=== PATIENT | male | born 1970 | race Caucasian/White ===

== ENCOUNTER 2017-01-25 21:24 | Emergency (ER) | payer OTHER ==
[~2017-01-25] VITALS: Ht 188 cm; Wt 130.0 kg
[~2017-01-25 21:24] MED LIST: 1-ME1LIQ PO; ALLO100T PO; OMPR20CCR PO; VENTAER INH; ZOLP10TA3 PO
[2017-01-25 21:28] VITALS: BP 157/94; PULSE 83; RESP 18; TEMP 98.2; O2SAT 95
[2017-01-25] MEDS ORDERED: ZOLP10TA3 PO (21:42)
[2017-01-25] MEDS ORDERED: LOSA50TA PO (21:42)
[2017-01-25] MEDS ORDERED: FINA1TAB16 PO (21:42)
[2017-01-25] MEDS ORDERED: OMEP20TA PO (21:42)
[2017-01-25 21:43] VITALS: BP 157/94; PULSE 83; RESP 18; TEMP 98.2; O2SAT 95
--- NOTE | 2017-01-25 21:52 | PD ---
HPI Chief Complaint: Injury Time Seen by Provider: 21:46 Travel History International Travel<30 days: Yes Contact w/Intl Traveler<30days: Yes Name of Country Traveled to: [place] Traveled to known affect area: No History of Present Illness HPI 46-year-old male presents to the emergency department by private transportation for complaint of right shoulder and clavicle pain after a fall earlier today. Patient states while playing tennis he was over reaching and allergies see overextended his right upper extremity he ended up falling, tucking and rolling , and injuring his right clavicle and shoulder. Patient states pain increases with attempted range of motion. Patient denies any deformity or swelling. Patient notes distally the right upper extremity demonstrates no numbness tingling or weakness. [employer] strength is normal. Patient is right-handed. Patient states he did not hit his head did not lose consciousness did not injure his neck or back or chest. Patient rates his pain 5/10 in intensity. No prior similar history. PFSH Past Medical History Narrative Medical Asthma dyslipidemia hypertension sleep apnea immunizations current; ear and sinus surgery right hip surgery; occasional alcohol use; nursing notes reviewed Asthma: Yes (MILD) Autoimmune Disease: No Cancer: No Cardiovascular Problems: No High Cholesterol: Yes Diabetes: No Diminished Hearing: No Endocrine: No Genitourinary: No Hepatitis: No Hiatal Hernia: No Hypertension: Yes Immune Disorder: No Musculoskeletal: No Neurologic: No Psychiatric: No Reproductive: No Respiratory: No Immunizations Current: Yes Sleep Apnea: Yes Thyroid Disease: No Past Surgical History Abdominal Surgery: No AICD: No Arteriovenous Shunt: No Cardiac Surgery: No Ear Surgery: Yes (TUBES IN RIGHT EAR) Endocrine Surgery: No Eye Surgery: No Genitourinary Surgery: No Gynecologic Surgery: No Insulin Pump: No Joint Replacement: Yes (hardware in the right hip) Oral Surgery: Yes (sinusotomy "surgery for sleep apnea") Pacemaker: No Thoracic Surgery: No Other Surgery: Yes (SINUS AND THROAT SX FOR SNORING) Social History Alcohol Use: Yes (COUPLE DRINKS 2-3 DAYS A WEEK.) Tobacco Use: No Substance Use: No Allergies-Medications (Allergen,Severity, Reaction): Coded Allergies: No Known Allergies (Verified , 01/25/17) Reported Meds & Prescriptions Reported Meds & Active Scripts Active Reported Zolpidem (Zolpidem Tartrate) 10 Mg Tab 10 Mg PO HS PRN Losartan (Losartan Potassium) 50 Mg Tab 50 Mg PO DAILY Finasteride (Finasteride (Alopecia)) 1 Mg Tab 1 Mg PO DAILY Omeprazole 20 Mg Tab 20 Mg PO DAILY Review of Systems Except as stated in HPI: all other systems reviewed are Neg General / Constitutional: No: Fever, Chills Eyes: No: Visual changes HENT: No: Headaches, Neck Pain Cardiovascular: No: Chest Pain or Discomfort Respiratory: No: Shortness of Breath Gastrointestinal: No: Abdominal Pain Genitourinary: No: Flank Pain Musculoskeletal: Positive: Pain (right shoulder clavicle) Skin: No Rash Neurologic: No: Weakness, Paresthesia Psychiatric: No: Anxiety Hematologic/Lymphatic: No: Lymph Node Enlargement Physical Exam Narrative GENERAL: Well-developed well-nourished female in acute distress no respiratory distress; GCS 15 SKIN: Warm and dry. HEAD: Normocephalic. No scalp soft tissue swelling abrasion laceration or tenderness. EYES: No scleral icterus. No injection or drainage. Pupils equal round reactive to light extraocular muscles intact. NECK: Supple, trachea midline. No JVD or lymphadenopathy. Nontender to direct palpation along the cervical spine. CARDIOVASCULAR: Regular rate and rhythm without murmurs, gallops, or rubs. RESPIRATORY: Breath sounds equal bilaterally. No accessory muscle use. GASTROINTESTINAL: Abdomen soft, non-tender, nondistended. MUSCULOSKELETAL: No cyanosis, or edema. Tenderness to palpation over the right shoulder and distal right clavicle without palpable deformity or crepitus. Distally right upper extremity is otherwise neurovascular tendon intact with 5 over 5 heart coordinator strength capillary refill is brisk and less than 2 seconds per digit and thumb apposition intact. Wrist extension intact. Thumb abduction and adduction intact. BACK: Nontender without obvious deformity. No CVA tenderness. Data Data Last Documented VS Vital Signs Date Time Temp Pulse Resp B/P Pulse Ox O2 Delivery O2 Flow Rate FiO2 01/25/17 21:48 18 95 Room Air 01/25/17 21:43 98.2 83 157/94 Orders Clavicle (01/25/17 ) Shoulder, Complete (>2vws) (01/25/17 ) Ice/Cold Pack (01/25/17 21:46) MDM Medical Decision Making Medical Screen Exam Complete: Yes Emergency Medical Condition: Yes Medical Record Reviewed: Yes Interpretation(s) Right clavicle x-ray: No fracture no acromioclavicular separation no acute bony injury Right shoulder x-ray: No fracture subluxation dislocation or acute bony injury Differential Diagnosis Sprain strain subluxation dislocation fracture rotator cuff injury acromioclavicular separation Narrative Course Ice pack applied cervical imaging studies ordered Diagnosis Primary Impression: Sprain of right shoulder Qualified Code: S43.401A - Sprain of right shoulder, unspecified shoulder sprain type, initial encounter Referrals: Orthopedist as needed Primary Care Physician call for appointment Patient Instructions: General Instructions Additional Instructions: Wear sling as needed for support and comfort Apply ice intermittently to right shoulder and clavicle area as needed Take ibuprofen 800 mg as often as every 8 hours as needed for pain associated with inflammation Follow-up with primary care provider and orthopedist as needed Return to the emergency department for any concerns or change in condition Med/Other Pt SpecificInfo: Prescription(s) given Scripts Ibuprofen 800 Mg [id number] Mg PO Q8H PRN (PAIN GREATER THAN 5) #10 TAB Ref 0 Prov:Chary Hua MD 01/25/17 Disposition: 01 DISCHARGE HOME Condition: Stable Chary Hua MD Jan 25, 2017 21:52
--- NOTE | 2017-01-25 22:19 | RADRPT ---
EXAM DATE/TIME: 01/25/2017 22:00 [facility] COMPARISON: SHOULDER RIGHT COMPLETE (>2VWS), January 25, 2017, 21:56. INDICATIONS : Right shoulder, arm pain after injury playing tennis today MEDICAL HISTORY : None. SURGICAL HISTORY : None. ENCOUNTER: Initial ACUITY: 1 day PAIN SCORE: 6/10 LOCATION: Right shoulder FINDINGS: Two view examination of the right clavicle demonstrates no evidence of fracture. The sternoclavicula r joints and acromioclavicular joints are maintained. Bony mineralization is normal. CONCLUSION: No acute disease. Jluis Coronel MD on January 25, 2017 at 22:17 Board Certified Radiologist. This report was verified electronically.
[2017-01-25] MEDS ORDERED: IBUP800T23 PO (22:20)
--- NOTE | 2017-01-25 22:20 | RADRPT ---
EXAM DATE/TIME: 01/25/2017 21:56 [facility] COMPARISON: CLAVICLE RIGHT, January 25, 2017, 22:00. INDICATIONS : Right shoulder, arm pain after injury playing tennis today MEDICAL HISTORY : None. SURGICAL HISTORY : None. ENCOUNTER: Initial ACUITY: 1 day PAIN SCORE: 6/10 LOCATION: Right shoulder FINDINGS: Multiple view examination of the right shoulder demonstrates no evidence of fracture or dislocation. The glenohumeral and acromioclavicular joints are maintained. There is normal range of motion betwe en internal and external rotation. Bony mineralization is normal. CONCLUSION: No acute disease. Jluis Coronel MD on January 25, 2017 at 22:18 Board Certified Radiologist. This report was verified electronically.
[2017-01-25 22:23] VITALS: BP 146/90
[2017-01-25] MEDS ORDERED: IBUPROFEN 800 MG TAB PO ONE (22:30)
== END 2017-01-25 22:30 | disposition home or self-care (01) ==
LOC: PHED 21:24
DX: S43.401A Unspecified sprain of right shoulder joint, initial encounter (principal); W19.XXXA Unspecified fall, initial encounter; Y93.73 Activity, racquet and hand sports
CPT/HCPCS: 73000; 73030; 99283